=== PATIENT | female | born 1945 | race Caucasian/White ===

== ENCOUNTER → 2022-03-04 | Emergency (ER) | payer MEDICARE, BC ==
[2022-03-21 10:05] LABS: ANION GAP 9.8 meq/L (7-15); CHLORIDE,CL 105 mmol/L (98-107); ESTIMATED GFR 56 mL/min (>=60); SODIUM,NA 141 mmol/L (136-145)
== END ==
LOC: LL.ED 11:49
DX: M50.30 Other cervical disc degeneration, unspecified cervical region (principal); Z88.8 Allergy status to other drugs, medicaments and biological substances; Z88.1 Allergy status to other antibiotic agents; Z86.73 Personal history of transient ischemic attack (TIA), and cerebral infarction without residual deficits
CPT/HCPCS: 36415; 71045; 72125; 80053; 83735; 83880; 84484; 85025; 85610; 93005; 93010; 96374; 96375; 99284; 99284-25

== ENCOUNTER 2023-01-21 19:09 | Inpatient (IN) | payer MEDICARE, BC ==
[2023-01-21 20:01] LABS: ALANINE AMINOTRANSFERASE,ALT 17 U/L (12-78); ALBUMIN 3.2 g/dL (3.4-5.0); ALKALINE PHOSPHATASE 65 IU/L (46-116); ANION GAP 10.1 meq/L (7-15); ASPARTATE AMNIOTRANSFERASE,AST 16 U/L (15-37); BILIRUBIN TOTAL 0.6 mg/dL (0.2-1.0); BLOOD UREA NITROGEN,BUN 16 mg/dL (7-18); CALCIUM 8.4 mg/dL (8.5-10.1); CARBON DIOXIDE,CO2 23.9 mmol/L (21.0-32.0); CHLORIDE,CL 102 mmol/L (98-107); CREATININE 1.28 mg/dL (0.51-1.17); GLUCOSE RANDOM 138 mg/dL (70-99); MAGNESIUM 1.7 mg/dL (1.8-2.4); POTASSIUM,K 3.5 mmol/L (3.5-5.1); PROTEIN TOTAL,TP 6.6 g/dL (6.4-8.2); SODIUM,NA 136 mmol/L (136-145)
[2023-01-21 20:04] LABS: ESTIMATED GFR 44 mL/min (>=60)
[2023-01-21 20:06] LABS: EOSINOPHILS ABSOLUTE AUTO 0.01 K/uL (0.00-0.50); EOSINOPHILS PERCENT AUTO 0.8 % (0.0-5.0); HEMATOCRIT 35.9 % (34.0-46.0); HEMOGLOBIN 11.5 g/dL (11.7-15.5); LYMPHOCYTES ABSOLUTE AUTO 0.77 K/uL (0.50-3.50); LYMPHOCYTES PERCENT AUTO 61.1 % (10.0-50.0); MEAN CORPUSCULAR VOLUME 93.7 fL (84.0-98.0); MONOCYTES ABSOLUTE AUTO 0.39 K/uL (0.00-1.00); NEUTROPHILS ABSOLUTE AUTO 0.09 K/uL (1.40-7.00); NEUTROPHILS PERCENT AUTO 7.1 % (45.0-80.0); PLATELET COUNT,PLT 137 K/uL (150-350); RED BLOOD CELL COUNT 3.83 M/uL (3.77-5.09); RED CELL DISTRIBUTION WIDTH 14.3 % (11.2-14.1)
[2023-01-21 20:11] LABS: WHITE BLOOD CELL COUNT,WBC 1.3 K/uL (4.0-10.2)
[2023-01-21 20:15] LABS: APPEARANCE,URINE SLIGHTLY CLOUDY; BILIRUBIN,URINE SMALL (NEGATIVE); GLUCOSE,URINE NEGATIVE (NEGATIVE); KETONES,URINE 15 mg/dL (NEGATIVE); LEUKOCYTE ESTERASE,URINE NEGATIVE (NEGATIVE); NITRITE,URINE NEGATIVE (NEGATIVE); OCCULT BLOOD,URINE NEGATIVE (NEGATIVE); PH,URINE 5.5 (5.0-9.0); PROTEIN,URINE 100 mg/dL (NEGATIVE)
[2023-01-21 20:23] LABS: COLOR,URINE DARK YELLOW
[2023-01-21 20:24] LABS: EPITHELIAL CELLS,URINE FEW /LPF; HYALINE CASTS,URINE MANY; MUCUS,URINE FEW /LPF (NEGATIVE); RBC,URINE 0-5 /HPF; WBC,URINE 0-5 /HPF
[2023-01-21 20:24] LABS: CORONAVIRUS COVID-19 NAA NEGATIVE (NEGATIVE); INFLUENZA A NAA NEGATIVE (NEGATIVE); INFLUENZA B NAA NEGATIVE (NEGATIVE); RESPIRATORY SYNCYTIAL VIR NAA NEGATIVE (NEGATIVE)
[2023-01-21 21:53] LABS: INR 2.6
[2023-01-21] MEDS: Piperacillin/Tazobactam 3.375 GM in Sodium Chloride 0.9% 100 ML IV SCH (23:31)
[2023-01-22] MEDS: Sodium Chloride 0.9% 10 ML Syringe FLUSH PRN ×3 (01:37→09:31)
[2023-01-22] MEDS: Piperacillin/Tazobactam 3.375 GM in Sodium Chloride 0.9% 100 ML IV SCH ×5 (04:02→22:15)
[2023-01-22] MEDS: Rosuvastatin 10 MG Tab PO SCH (07:24)
[2023-01-22] MEDS: Levothyroxine 88 MCG Tab PO SCH (07:25)
[2023-01-22 07:35] LABS: BASOPHILS ABSOLUTE AUTO 0.02 K/uL (0.00-0.20); BASOPHILS PERCENT AUTO 1.5 % (0.0-2.0); EOSINOPHILS ABSOLUTE AUTO 0.01 K/uL (0.00-0.50); EOSINOPHILS PERCENT AUTO 0.7 % (0.0-5.0); HEMATOCRIT 31.7 % (34.0-46.0); HEMOGLOBIN 10.2 g/dL (11.7-15.5); LYMPHOCYTES ABSOLUTE AUTO 0.74 K/uL (0.50-3.50); MEAN CORPUSCULAR HGB CONC 32.2 g/dL (31.7-36.0); MEAN CORPUSCULAR VOLUME 93.2 fL (84.0-98.0); MONOCYTES ABSOLUTE AUTO 0.56 K/uL (0.00-1.00); MONOCYTES PERCENT AUTO 40.9 % (2.0-14.0); NEUTROPHILS ABSOLUTE AUTO 0.04 K/uL (1.40-7.00); NEUTROPHILS PERCENT AUTO 2.9 % (45.0-80.0); PLATELET COUNT,PLT 128 K/uL (150-350); RED CELL DISTRIBUTION WIDTH 14.2 % (11.2-14.1)
[2023-01-22] MEDS ORDERED: Sodium Chloride 0.9% 500 ML IV ONE (07:42)
[2023-01-22] MEDS: Hydrochlorothiazide 25 MG Tab PO SCH (07:44)
[2023-01-22 07:46] LABS: WHITE BLOOD CELL COUNT,WBC 1.4 K/uL (4.0-10.2)
[2023-01-22 07:50] LABS: ANION GAP 6.1 meq/L (7-15); CALCIUM 8.4 mg/dL (8.5-10.1); CARBON DIOXIDE,CO2 27.9 mmol/L (21.0-32.0); CREATININE 1.15 mg/dL (0.51-1.17); EST CRCL DRUG DOSING (CG) 38.03 mL/min; POTASSIUM,K 3.5 mmol/L (3.5-5.1)
[2023-01-22] MEDS ORDERED: Sodium Chloride 0.9% 1,000 ML IV ONE (08:00)
[2023-01-22] MEDS ORDERED: Ondansetron 4 MG/2 ML SDV IVPUSH PRN (11:00)
[2023-01-22] MEDS: Magnesium Chloride 64 MG Tab.ER PO SCH (11:53)
[2023-01-22] MEDS: Sodium Chloride 0.9% 1,000 ML IV SCH (14:23)
[2023-01-22] MEDS: Warfarin 5 MG Tab PO SCH (17:56)
[2023-01-23] MEDS: Sodium Chloride 0.9% 1,000 ML IV SCH (03:17)
[2023-01-23] MEDS: Piperacillin/Tazobactam 3.375 GM in Sodium Chloride 0.9% 100 ML IV SCH ×4 (03:17→22:14)
[2023-01-23 07:22] LABS: BASOPHILS ABSOLUTE AUTO 0.02 K/uL (0.00-0.20); BASOPHILS PERCENT AUTO 0.7 % (0.0-2.0); EOSINOPHILS ABSOLUTE AUTO 0.04 K/uL (0.00-0.50); EOSINOPHILS PERCENT AUTO 1.5 % (0.0-5.0); HEMATOCRIT 27.4 % (34.0-46.0); HEMOGLOBIN 8.8 g/dL (11.7-15.5); LYMPHOCYTES ABSOLUTE AUTO 1.51 K/uL (0.50-3.50); LYMPHOCYTES PERCENT AUTO 55.9 % (10.0-50.0); MEAN CORPUSCULAR HEMOGLOBIN 30.3 pg (28.2-33.3); MEAN CORPUSCULAR HGB CONC 32.1 g/dL (31.7-36.0); MEAN CORPUSCULAR VOLUME 94.5 fL (84.0-98.0); MONOCYTES ABSOLUTE AUTO 0.92 K/uL (0.00-1.00); MONOCYTES PERCENT AUTO 34.1 % (2.0-14.0); NEUTROPHILS ABSOLUTE AUTO 0.21 K/uL (1.40-7.00); NEUTROPHILS PERCENT AUTO 7.8 % (45.0-80.0); PLATELET COUNT,PLT 118 K/uL (150-350); RED CELL DISTRIBUTION WIDTH 14.2 % (11.2-14.1); WHITE BLOOD CELL COUNT,WBC 2.7 K/uL (4.0-10.2)
[2023-01-23 07:46] LABS: INR 2.4; PROTHROMBIN TIME 22.7 SEC (9.0-11.1)
[2023-01-23] MEDS: Rosuvastatin 10 MG Tab PO SCH (07:47)
[2023-01-23] MEDS: Levothyroxine 88 MCG Tab PO SCH (07:47)
[2023-01-23] MEDS: Magnesium Chloride 64 MG Tab.ER PO SCH (07:47)
[2023-01-23 07:48] LABS: CALCIUM 8.1 mg/dL (8.5-10.1); CARBON DIOXIDE,CO2 25.5 mmol/L (21.0-32.0); CREATININE 1.11 mg/dL (0.51-1.17); EST CRCL DRUG DOSING (CG) 39.4 mL/min; MAGNESIUM 1.9 mg/dL (1.8-2.4); POTASSIUM,K 3.4 mmol/L (3.5-5.1)
[2023-01-23] MEDS: Hydrochlorothiazide 25 MG Tab PO SCH (07:48)
[2023-01-23 07:51] LABS: ANION GAP 11.9 meq/L (7-15)
[2023-01-23] MEDS: Sodium Chloride 0.9% 10 ML Syringe FLUSH PRN ×2 (16:27→22:14)
[2023-01-23] MEDS ORDERED: Prochlorperazine 5 MG Tab PO PRN (16:44)
[2023-01-23] MEDS: Pantoprazole 40 MG Tab.CR PO SCH (17:07)
[2023-01-23] MEDS: Warfarin 5 MG Tab PO SCH (17:07)
[2023-01-23] MEDS ORDERED: Dexamethasone 2 MG Tab PO SCH (18:00)
[2023-01-23] MEDS: Sucralfate 1 GM Tab PO SCH (19:12)
[2023-01-24] MEDS: Piperacillin/Tazobactam 3.375 GM in Sodium Chloride 0.9% 100 ML IV SCH ×4 (03:47→21:28)
[2023-01-24] MEDS: Sodium Chloride 0.9% 10 ML Syringe FLUSH PRN ×4 (03:47→21:59)
[2023-01-24] MEDS: Sucralfate 1 GM Tab PO SCH ×4 (07:06→20:35)
[2023-01-24] MEDS: Magnesium Chloride 64 MG Tab.ER PO SCH (07:06)
[2023-01-24] MEDS: Rosuvastatin 10 MG Tab PO SCH (07:06)
[2023-01-24] MEDS: Levothyroxine 88 MCG Tab PO SCH (07:06)
[2023-01-24] MEDS: Pantoprazole 40 MG Tab.CR PO SCH ×2 (07:06→17:39)
[2023-01-24] MEDS: Hydrochlorothiazide 25 MG Tab PO SCH (07:08)
[2023-01-24 08:04] LABS: BASOPHILS ABSOLUTE AUTO 0.02 K/uL (0.00-0.20); BASOPHILS PERCENT AUTO 0.8 % (0.0-2.0); EOSINOPHILS ABSOLUTE AUTO 0.03 K/uL (0.00-0.50); EOSINOPHILS PERCENT AUTO 1.2 % (0.0-5.0); HEMATOCRIT 29.4 % (34.0-46.0); HEMOGLOBIN 9.3 g/dL (11.7-15.5); LYMPHOCYTES ABSOLUTE AUTO 1.37 K/uL (0.50-3.50); LYMPHOCYTES PERCENT AUTO 55.9 % (10.0-50.0); MEAN CORPUSCULAR HEMOGLOBIN 29.7 pg (28.2-33.3); MEAN CORPUSCULAR HGB CONC 31.6 g/dL (31.7-36.0); MEAN CORPUSCULAR VOLUME 93.9 fL (84.0-98.0); MONOCYTES ABSOLUTE AUTO 0.62 K/uL (0.00-1.00); MONOCYTES PERCENT AUTO 25.3 % (2.0-14.0); NEUTROPHILS ABSOLUTE AUTO 0.41 K/uL (1.40-7.00); NEUTROPHILS PERCENT AUTO 16.8 % (45.0-80.0); PLATELET COUNT,PLT 157 K/uL (150-350); RED BLOOD CELL COUNT 3.13 M/uL (3.77-5.09); RED CELL DISTRIBUTION WIDTH 14.1 % (11.2-14.1); WHITE BLOOD CELL COUNT,WBC 2.5 K/uL (4.0-10.2)
[2023-01-24 08:18] LABS: CALCIUM 8.3 mg/dL (8.5-10.1); CREATININE 0.92 mg/dL (0.51-1.17); EST CRCL DRUG DOSING (CG) 47.54 mL/min; MAGNESIUM 1.8 mg/dL (1.8-2.4); POTASSIUM,K 3.3 mmol/L (3.5-5.1)
[2023-01-24 08:32] LABS: ANION GAP 12.3 meq/L (7-15)
[2023-01-24] MEDS ORDERED: Potassium Bicarbonate/Cit Ac 20 MEQ Effervescent Tab PO ONE (11:48)
[2023-01-24] MEDS ORDERED: Furosemide 40 MG/4 ML VIAL IVPUSH ONE (11:49)
[2023-01-24] MEDS: Warfarin 5 MG Tab PO SCH (17:39)
[2023-01-25] MEDS: Piperacillin/Tazobactam 3.375 GM in Sodium Chloride 0.9% 100 ML IV SCH ×2 (03:59→09:09)
[2023-01-25] MEDS: Sodium Chloride 0.9% 10 ML Syringe FLUSH PRN ×2 (04:28→09:09)
[2023-01-25] MEDS: Levothyroxine 88 MCG Tab PO SCH (07:16)
[2023-01-25] MEDS: Rosuvastatin 10 MG Tab PO SCH (07:16)
[2023-01-25] MEDS: Sucralfate 1 GM Tab PO SCH (07:16)
[2023-01-25] MEDS: Pantoprazole 40 MG Tab.CR PO SCH (07:16)
[2023-01-25] MEDS: Magnesium Chloride 64 MG Tab.ER PO SCH (07:17)
[2023-01-25] MEDS: Hydrochlorothiazide 25 MG Tab PO SCH (07:17)
[2023-01-25 07:59] LABS: BASOPHILS ABSOLUTE AUTO 0.04 K/uL (0.00-0.20); BASOPHILS PERCENT AUTO 1.3 % (0.0-2.0); EOSINOPHILS ABSOLUTE AUTO 0.07 K/uL (0.00-0.50); EOSINOPHILS PERCENT AUTO 2.2 % (0.0-5.0); HEMOGLOBIN 9.6 g/dL (11.7-15.5); LYMPHOCYTES ABSOLUTE AUTO 1.81 K/uL (0.50-3.50); LYMPHOCYTES PERCENT AUTO 57.1 % (10.0-50.0); MEAN CORPUSCULAR HEMOGLOBIN 29.9 pg (28.2-33.3); MEAN CORPUSCULAR VOLUME 93.5 fL (84.0-98.0); MONOCYTES ABSOLUTE AUTO 0.73 K/uL (0.00-1.00); NEUTROPHILS ABSOLUTE AUTO 0.52 K/uL (1.40-7.00); NEUTROPHILS PERCENT AUTO 16.4 % (45.0-80.0); PLATELET COUNT,PLT 191 K/uL (150-350); RED BLOOD CELL COUNT 3.21 M/uL (3.77-5.09); RED CELL DISTRIBUTION WIDTH 14.2 % (11.2-14.1); WHITE BLOOD CELL COUNT,WBC 3.2 K/uL (4.0-10.2)
[2023-01-25 08:19] LABS: CALCIUM 8.1 mg/dL (8.5-10.1); CARBON DIOXIDE,CO2 28.8 mmol/L (21.0-32.0); CREATININE 1.06 mg/dL (0.51-1.17); EST CRCL DRUG DOSING (CG) 41.26 mL/min; POTASSIUM,K 3.2 mmol/L (3.5-5.1)
[2023-01-25 09:03] LABS: ANION GAP 11.4 meq/L (7-15)
[2023-01-25] MEDS ORDERED: Levofloxacin 500 MG Tab PO ONE (09:28)
== END 2023-01-25 10:05 | disposition home or self-care (01) | DRG 809 ==
LOC: LL.ED 19:09 → LL.MS 22:00
PROVIDERS: ADMIT Emergency Medicine; ATTEND Emergency Medicine
DX: D70.1 Agranulocytosis secondary to cancer chemotherapy (principal); D70.9 Neutropenia, unspecified; C16.9 Malignant neoplasm of stomach, unspecified; T45.1X5A Adverse effect of antineoplastic and immunosuppressive drugs, initial encounter; E83.42 Hypomagnesemia; R50.81 Fever presenting with conditions classified elsewhere; Z20.822 Contact with and (suspected) exposure to COVID-19; I48.91 Unspecified atrial fibrillation; I12.9 Hypertensive chronic kidney disease with stage 1 through stage 4 chronic kidney disease, or unspecified chronic kidney disease; D32.0 Benign neoplasm of cerebral meninges; K59.00 Constipation, unspecified; Z91.048 Other nonmedicinal substance allergy status; Z88.1 Allergy status to other antibiotic agents; Z88.8 Allergy status to other drugs, medicaments and biological substances; E11.22 Type 2 diabetes mellitus with diabetic chronic kidney disease; N18.9 Chronic kidney disease, unspecified; E03.9 Hypothyroidism, unspecified; E78.00 Pure hypercholesterolemia, unspecified; Z79.01 Long term (current) use of anticoagulants; Z79.899 Other long term (current) drug therapy
CPT/HCPCS: 0241U; 36415; 70450; 71046; 80048; 80053; 81001; 83605; 83735; 85025; 85610; 87040; 99285; A9270-GY; J1642; J1940; J2543; J3475; J3490; J7030; J8540